=== PATIENT | female | born 1975 | race Caucasian/White ===

== ENCOUNTER → 2017-09-06 | Outpatient (CLI) | payer OTHER | LOC: CIMAGING 09:20 | PROVIDERS: ATTEND Nurse Practitioner | DX: R91.8 Other nonspecific abnormal finding of lung field (principal) | CPT/HCPCS: 71046-PO ==

== ENCOUNTER 2017-10-05 07:15 | Day surgery (SDC) | payer OTHER ==
[2017-10-05] MEDS ORDERED: FLUMAZENIL 0.5 MG/5 ML MDV IVP PRN (07:17)
[2017-10-05] MEDS ORDERED: NALOXONE HCL 0.4 MG/ML INJ IVP PRN (07:17)
[2017-10-05] MEDS ORDERED: fentaNYL 100 MCG/2 ML INJ IVP PRN (07:17)
[2017-10-05] MEDS ORDERED: MIDAZOLAM 2 MG/2 ML VIAL IVP PRN (07:17)
[2017-10-05] MEDS ORDERED: NS 1,000 ML IV SCH (07:30)
[2017-10-05] MEDS ORDERED: DIAZEPAM 5 MG TAB ONE (08:11)
[2017-10-05 08:40] LABS: INR 1.1 (0.83-1.16); PROTIME(PATIENT) 14.4 SEC (12.0-15.0)
[2017-10-05] MEDS ORDERED: DIAZEPAM 5 MG TAB PO ONE (09:00)
--- NOTE | 2017-10-05 10:03 | PDRADPRE ---
Radiology History & Physical Indication for procedure: lung nodule/mass Home medications: ALPRAZolam [Xanax 1 MG (RX)] 1 mg PO DAILY 11/16/11 [Last Taken 10/04/17] Ibuprofen [Motrin 800 mg (RX)] 800 mg PO BID 11/16/11 [Last Taken 10/04/17] Oxycodone HCl/Acetaminophen [Percocet 10-325 mg Tablet] 2 tab PO QID PRN [Last Taken 09/21/17] Sertraline HCl [Zoloft 100mg (RX)] 150 mg PO DAILY 11/16/11 [Last Taken 10/05/17 ] Zolpidem Tartrate [Ambien 10 mg] 10 mg PO HS 11/16/11 [Last Taken 10/04/17] Fenofibrate 10/03/17 [Last Taken 10/05/17] Levothyroxine [Synthroid 75 mcg (*)] 75 mcg PO DAILY06 10/03/17 [Last Taken ] Gabapentin 600 mg PO BID 10/05/17 [Last Taken 10/05/17] Allergies/Adverse Reactions: hydromorphone [From Dilaudid] Allergy (Intermediate, Verified 10/03/17 11:48) Itching Penicillins Allergy (Intermediate, Verified 11/16/11 18:18) Hives Mental status: A&Ox3 Heart exam: regular rate and rhythm Lungs exam: clear to auscultation Mallampati Score: Class 2
--- NOTE | 2017-10-05 10:04 | PDRADPN ---
Radiology Procedure Note Date of Procedure: 10/05/17 Radiologist: Carlo Gonzalez Anesthesia: Local (Specify) Pre-op Diagnosis: lung mass Post-op Diagnosis: lung mass Indication: RLL lung mass Procedure: CT guided biopsy Finding(s): 18 ga cores sent in formalin and saline Inf/Abcess present in the surg proc area at time of surgery?: No
[2017-10-05] MEDS ORDERED: OXYCODONE/APAP 5/325 TAB PO ONE (11:30)
[2017-10-05 13:01] VITALS: BP 115/70
== END 2017-10-05 13:17 | disposition home or self-care (01) ==
LOC: FIMAGING 07:15
PROVIDERS: ATTEND Internal Medicine Critical Care Medicine
PROC: 0BBF3ZX Excision of Right Lower Lung Lobe, Percutaneous Approach, Diagnostic (ICD-10-PCS; principal; 2017-10-05 10:23)
DX: R91.1 Solitary pulmonary nodule (principal); R07.81 Pleurodynia; Z88.0 Allergy status to penicillin; Z87.01 Personal history of pneumonia (recurrent)
CPT/HCPCS: J1200; J2250; J2310; J3010

== ENCOUNTER 2017-10-06 13:55 | Emergency (ER) | payer OTHER ==
[2017-10-06] MEDS ORDERED: OXYCODONE/APAP 5/325 TAB PO ONE ×2 (14:04→15:14)
[2017-10-06] MEDS ORDERED: IBUPROFEN 600 MG TAB PO ONE (14:04)
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
[2017-10-06] MEDS ORDERED: PROPARACAINE 0.5% 15 ML OPHT DROP OP ONE (15:22)
[2017-10-06 15:40] VITALS: BP 138/75
== END 2017-10-06 15:40 | disposition home or self-care (01) ==
LOC: EDUNIT#
DX: S80.02XA Contusion of left knee, initial encounter (principal); V49.40XA Driver injured in collision with unspecified motor vehicles in traffic accident, initial encounter; Y92.410 Unspecified street and highway as the place of occurrence of the external cause; Y99.8 Other external cause status; Y93.89 Activity, other specified

== ENCOUNTER → 2018-01-26 | Outpatient (CLI) | payer OTHER | LOC: CIMAGING 09:50 | PROVIDERS: ATTEND Nurse Practitioner | DX: M25.571 Pain in right ankle and joints of right foot (principal); E78.1 Pure hyperglyceridemia; G25.81 Restless legs syndrome | CPT/HCPCS: 73610-PO ==

== ENCOUNTER 2018-05-05 07:34 | Emergency (ER) | payer OTHER ==
[2018-05-05] MEDS ORDERED: LET GEL TOPICAL 1 EA SYR TP ONE (08:06)
[2018-05-05] MEDS ORDERED: DOXYCYCLINE HYCLATE 100 MG CAP/TAB PO ONE (08:07)
[2018-05-05] MEDS ORDERED: TDAP ADULT 0.5 ML INJ (BOOSTRIX) IM ONE (08:07)
--- NOTE | 2018-05-05 08:14 | EDPHY ---
H & P Time Seen by Provider: 05/05/18 07:47 HPI/ROS: HPI Cat bite and scratches. 42-year-old female by private vehicle. This patient reports that at 6:30 a.m. This morning she broke up a fight between 2 unknown cats who were fighting on her porch step. She reports that she tried to kick the animals apart initially. 1 of the animals jumped onto her right hand. And bit her several times in the right hand and right wrist and scratched her multiple times on the right hand and right wrist. She complains of pain to these areas. She took ibuprofen prior to arrival. She cannot remember the last time she had a tetanus shot. She is right-hand dominant. ROS: Constitutional: No fever, no chills. No weakness. Musculoskeletal: No back pain. No neck pain. As above. Skin: As above. Neurological: No focal weakness or altered sensation. Past medical history: Multiple orthopedic surgeries, chronic neck and back pain , uterine ablation. Hypothyroid. Dr. Soco Moraes is her digital content specialist. She is allergic to penicillins. 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 Nonsmoker. Here by herself. Physical Exam: General Appearance: Alert, no distress. This patient is responding to questions appropriately and in full sentences. This patient appears well- hydrated and well-nourished. Eyes: Pupils equal and round no pallor or injection. No lid edema, erythema or injection. Right upper extremity exam: Significant for multiple superficial scratches over the radial aspect of the right dorsal hand and digits 1, 2 and 3. She has a 2 mm puncture wound with associated localized swelling mid dorsal right wrist. She has another puncture wound about 2 mm in diameter distal ulnar wrist. This wound also has a localized swelling about the diameter of a quarter. No associated warmth or erythema. No foreign body palpated or seen on gross inspection of these wounds. All flexor and extensor tendon function is intact in the right hand, wrist and all digits. The right hand is neurovascularly intact. Neurological: Motor sensory function is grossly intact. Cranial nerves are normal. Gait is normal. Skin: Warm and dry, no rashes. As above. Musculoskeletal: Neck is supple and nontender. Extremities are symmetrical. All joints range without pain or impingement except noted. Psychiatric: No agitation. No depression. Database: EKG: Imaging: Right hand and forearm x-ray series: No evidence of radiopaque foreign body or bony involvement. Interpreted by me. Please see report by radiologist. No puncture wound adjacent to right triquetrum. Procedures: Emergency department course: Triage vital signs reviewed and are unremarkable. Her wounds were thoroughly irrigated and scrubbed after application of topical lidocaine. Puncture wounds were thoroughly irrigated. She was given a Tdap vaccination. She was started on doxycycline, 100 mg given in the emergency department. She will be given [place] for additional pain medication as needed. 8:50 a.m., the patient was re-evaluated, right upper extremity is neurovascularly intact. She is finishing wound care therapy. Her pain is well controlled. I discussed results of her x-rays with her. Her wounds will be appropriately dressed after cleansing. I discussed the importance of compliance with her antibiotics and follow-up care. She feels comfortable going home at this time. Return to emergency department precautions were thoroughly reviewed with her. All of her questions were answered. She was discharged from emergency department in good condition. Differential Diagnosis: The differential diagnosis on this patient includes but is not limited to cat bite and scratches to right hand and right wrist. No radiopaque foreign body noted. Tendon, significant neurovascular injury unlikely. This represents a partial list of diagnoses considered. These considerations are based on history , physical exam, past history, reassessment and diagnostic testing. Smoking Status: Never smoked Constitutional: Initial Vital Signs Temperature (C) 36.9 C 05/05/18 07:45 Heart Rate 86 05/05/18 07:45 Respiratory Rate 18 05/05/18 07:45 Blood Pressure 134/85 H 05/05/18 07:45 O2 Sat (%) 96 05/05/18 07:45 O2 Delivery Mode Room Air Allergies/Adverse Reactions: hydromorphone [From Dilaudid] Allergy (Intermediate, Verified 05/05/18 07:48) Itching Penicillins Allergy (Intermediate, Verified 05/05/18 07:48) Hives Home Medications: Medication Instructions Recorded ALPRAZolam [Xanax 1 MG (RX)] 1 mg PO DAILY 11/16/11 Sertraline HCl [Zoloft 100mg (RX)] 150 mg PO DAILY 11/16/11 Zolpidem Tartrate [Ambien 10 mg] 10 mg PO HS 11/16/11 Levothyroxine [Synthroid 75 mcg 75 mcg PO DAILY06 10/03/17 (*)] Gabapentin 600 mg PO BID 10/05/17 oxyCODONE/APAP 5/325 [Percocet] 1 - 2 tab PO Q6 PRN #11 tab 10/06/17 Doxycycline Hyclate 100 mg PO BID #28 capsule 05/05/18 [place] 05/05/18 Medical Decision Making - Diagnostics Imaging Results: Imaging Impressions Hand X-Ray 05/05/18 08:02 Impression: No acute fracture or dislocation. There is a faint density adjacent to the triquetrum which may represent a skin fold or other object. Recommend direct inspection. Wrist X-Ray 05/05/18 08:03 Impression: No acute fracture or dislocation. There is a faint density adjacent to the triquetrum which may represent a skin fold or other object. Recommend direct inspection. - Data Points Medications Given: Discontinued Medications Diphtheria/Tetanus/Acell Pertussis (Boostrix) 0.5 ml IM .ONCE ONE Stop: 05/05/18 08:08 Last Admin: 05/05/18 08:16 Dose: 0.5 ml Doxycycline Hyclate (Doxycycline Hyclate) 100 mg PO EDNOW ONE PRN Reason: Protocol Stop: 05/05/18 08:08 Last Admin: 05/05/18 08:15 Dose: 100 mg Oxycodone/Acetaminophen (Percocet 5/325) 1 tab PO EDNOW ONE Stop: 05/05/18 08:32 Last Admin: 05/05/18 08:35 Dose: 1 tab Tetracaine/Epinephrine/Lidocaine (Let Gel Topical) 1 ea TP EDNOW ONE Stop: 05/05/18 08:07 Last Admin: 05/05/18 08:18 Dose: 1 ea Departure - Departure Disposition: Home, Routine, Self-Care Clinical Impression: Cat bite of right hand, Cat bite of right wrist Condition: Good Instructions: Animal Bite (ED) Additional Instructions: Read and follow provided instructions. Follow-up with your primary care physician on Tuesday for re-evaluation and wound check without fail. Take antibiotic as prescribed through entire course of treatment. Ibuprofen dosin mg every 6 hours with meals for the next 3 days only. Take only as needed for pain. Narcotic pain medication: 1-2 every 4-6 hours as needed for pain. Your cat bite wounds are high risk for infection. Your recovery needs to be followed closely by your primary care physician. Return to the emergency department immediately for for redness and swelling developing around your wounds, redness and swelling of your right hand and forearm, fever, worsening pain or other serious concerns. You will receive a call from [employer] [employer] . Referrals: Rabia Howard, RECREATIONAL AIDE [Primary Care Provider] - As per Instructions Prescriptions: Doxycycline Hyclate 100 mg PO BID #28 capsule
[2018-05-05] MEDS ORDERED: OXYCODONE/APAP 5/325 TAB PO ONE (08:31)
[2018-05-05 09:19] VITALS: BP 151/96
== END 2018-05-05 09:34 | disposition home or self-care (01) ==
LOC: CED 07:34
DX: S61.531A Puncture wound without foreign body of right wrist, initial encounter (principal); W55.01XA Bitten by cat, initial encounter; Y93.K9 Activity, other involving animal care; Y92.018 Other place in single-family (private) house as the place of occurrence of the external cause; Z88.0 Allergy status to penicillin; Z23 Encounter for immunization
CPT/HCPCS: 73100-PO; 73120-PO; 90471-ER; 99283-ER